=== PATIENT | male | born 1955 | race Two or more races ===

== ENCOUNTER 2022-01-15 16:41 | Inpatient (IN) | payer OTHER, MEDICAID ==
[~2022-01-15] VITALS: Ht 177.8 cm; Wt 80.6 kg
[2022-01-15 20:10] VITALS: BP 148/92
[2022-01-15] MEDS ORDERED: METF-370 PO (20:58)
[2022-01-15] MEDS ORDERED: GLIP10TA9 PO (20:58)
[2022-01-15] MEDS ORDERED: CARV25TA55 PO (20:59)
[2022-01-15] MEDS ORDERED: ATOR20TA50 PO (20:59)
[2022-01-15] MEDS ORDERED: ASPI1TAB91 PO (20:59)
[2022-01-15 22:00] VITALS: BP 149/84
[2022-01-15] MEDS ORDERED: MORPHINE SULFATE 4 MG/ML SYR/VIAL IV PRN (22:15)
[2022-01-15] MEDS ORDERED: ACETAMINOPHEN 325 MG TAB PO PRN (22:15)
[2022-01-15] MEDS ORDERED: MORPHINE SULFATE INJ 2 MG/ml SYRG IV PRN (22:15)
[2022-01-15] MEDS ORDERED: NITROGLYCERIN 0.4 MG SL TAB SL PRN ×2 (22:15)
[2022-01-15] MEDS ORDERED: ONDANSETRON HCL 4 MG/2 ML VIAL IV PRN (22:15)
[2022-01-15 23:17] LABS: INR 1.09 (0.9-1.15)
[2022-01-15 23:22] LABS: Magnesium 1.7 mg/dL (1.6-2.6)
[2022-01-16] VITALS (7 sets, daily range): BP systolic 129–154; BP diastolic 72–87
[2022-01-16 06:03] LABS: Basophils # (auto) 0.1 10 ^3/uL (0-0.2); Basophils % (auto) 0.8 % (0.0-2.0); Eosinophils # (auto) 0.3 10 ^3/uL (0-0.8); Hematocrit 43.9 % (41.0-53.0); Lymphocytes # (auto) 1.8 10 ^3/uL (0.4-5.4); Lymphocytes % (auto) 18.7 % (10.0-50.0); Mean Corpuscular Hemoglobin 30.4 pg (28.0-32.0); Mean Corpuscular Hgb Conc. 34.2 g/dL (32.0-36.0); Monocytes # (auto) 0.8 10 ^3/uL (0-1.3); Monocytes % (auto) 7.8 % (0.0-12.0); Neutrophils # (auto) 6.9 10 ^3/uL (1.6-8.6); Neutrophils % (auto) 69.7 % (37.0-80.0); Nucleated Red Blood Cells % 0.1 %; Red Blood Cells 4.93 10^6/uL (4.5-5.90); Red Cell Distribution Width 14.5 % (11.8-14.3); White Blood Cell 9.9 10^3/uL (4.4-10.8)
[2022-01-16 06:13] LABS: Albumin 2.8 g/dL (3.4-5.0); Calcium 8.5 mg/dL (8.5-10.1); Potassium 4.2 mmol/L (3.5-5.1)
[2022-01-16 06:18] LABS: BUN/Creatinine Ratio 15.1; Bilirubin, Total 0.6 mg/dL (0.2-1.0); Total Protein 6.5 g/dL (6.4-8.2)
[2022-01-16] MEDS: ASPirin-EC 81 mg tab PO SCH (09:57)
[2022-01-16] MEDS: FUROSEMIDE 40 MG/4 ML VIAL IV SCH (09:57)
[2022-01-16] MEDS: ATORVASTATIN 20 MG TAB PO SCH (09:57)
[2022-01-16] MEDS: CARVEDILOL 12.5 MG TAB PO SCH ×2 (09:58→22:21)
[2022-01-16] MEDS ORDERED: metFORMIN HYDROCHLORIDE 500 MG TAB PO SCH (10:00)
[2022-01-16] MEDS ORDERED: WARFARIN SODIUM 5 MG TAB PO SCH (17:00)
[2022-01-16] MEDS ORDERED: DEXTROSE (50%) 50ML SYRG IV PRN (17:15)
[2022-01-16] MEDS: InsuLIN REG 1unit/0.01ml Soln (100units/ml) SC SCH (22:23)
[2022-01-16] MEDS: ACCU-CHEK COMFORT CURVE STRIP VI SCH (22:29)
[2022-01-17 05:00] VITALS: BP 142/85
[2022-01-17 05:56] LABS: Basophils # (auto) 0.1 10 ^3/uL (0-0.2); Basophils % (auto) 0.8 % (0.0-2.0); Eosinophils # (auto) 0.3 10 ^3/uL (0-0.8); Eosinophils % (auto) 3.2 % (0.0-7.0); Hematocrit 42.8 % (41.0-53.0); Hemoglobin 14.5 g/dL (13.5-17.5); Lymphocytes # (auto) 2.3 10 ^3/uL (0.4-5.4); Lymphocytes % (auto) 23.6 % (10.0-50.0); Mean Corpuscular Hemoglobin 30.3 pg (28.0-32.0); Mean Corpuscular Hgb Conc. 33.9 g/dL (32.0-36.0); Mean Corpuscular Volume 89.4 fL (80.0-100.0); Monocytes # (auto) 0.7 10 ^3/uL (0-1.3); Monocytes % (auto) 7.4 % (0.0-12.0); Neutrophils # (auto) 6.4 10 ^3/uL (1.6-8.6); Nucleated Red Blood Cells % 0.1 %; Red Blood Cells 4.79 10^6/uL (4.5-5.90); Red Cell Distribution Width 14.3 % (11.8-14.3); White Blood Cell 9.9 10^3/uL (4.4-10.8)
[2022-01-17] MEDS: InsuLIN REG 1unit/0.01ml Soln (100units/ml) SC SCH ×4 (06:12→21:21)
[2022-01-17] MEDS: ACCU-CHEK COMFORT CURVE STRIP VI SCH ×4 (06:12→21:20)
[2022-01-17 06:16] LABS: Albumin 2.8 g/dL (3.4-5.0); BUN/Creatinine Ratio 20.9; Calcium 8.2 mg/dL (8.5-10.1); Potassium 4.2 mmol/L (3.5-5.1)
[2022-01-17 06:18] LABS: Bilirubin, Total 0.6 mg/dL (0.2-1.0); Total Protein 6.6 g/dL (6.4-8.2)
[2022-01-17 06:33] LABS: INR 1.12 (0.9-1.15); Partial Thromboplastin Time 28.2 sec (24.6-33.4)
[2022-01-17 08:15] VITALS: BP 137/89
[2022-01-17 09:05] VITALS: BP 137/89
[2022-01-17] MEDS: ASPirin-EC 81 mg tab PO SCH (10:36)
[2022-01-17] MEDS: FUROSEMIDE 40 MG/4 ML VIAL IV SCH (10:36)
[2022-01-17] MEDS: ATORVASTATIN 20 MG TAB PO SCH (10:36)
[2022-01-17] MEDS: CARVEDILOL 12.5 MG TAB PO SCH ×2 (10:37→21:19)
[2022-01-17 13:15] VITALS: BP 144/88
[2022-01-17 17:00] VITALS: BP 122/75
[2022-01-17] MEDS ORDERED: WARFARIN SODIUM 5 MG TAB PO ONE (17:00)
[2022-01-17 22:00] VITALS: BP_SYST 138; BP_SYST 141; BP_DIAS 87; BP_DIAS 88
[2022-01-18] VITALS (10 sets, daily range): BP systolic 116–154; BP diastolic 66–85
[2022-01-18 05:53] LABS: INR 1.29 (0.9-1.15); Partial Thromboplastin Time 29.4 sec (24.6-33.4)
[2022-01-18] MEDS: InsuLIN REG 1unit/0.01ml Soln (100units/ml) SC SCH ×4 (06:05→22:08)
[2022-01-18] MEDS: ACCU-CHEK COMFORT CURVE STRIP VI SCH ×4 (06:05→22:06)
[2022-01-18] MEDS: FUROSEMIDE 40 MG/4 ML VIAL IV SCH (10:00)
[2022-01-18] MEDS: ASPirin-EC 81 mg tab PO SCH (11:03)
[2022-01-18] MEDS: CARVEDILOL 12.5 MG TAB PO SCH ×2 (11:03→22:06)
[2022-01-18] MEDS: ATORVASTATIN 20 MG TAB PO SCH (11:03)
[2022-01-18] MEDS ORDERED: ANGIOMAX 250 MG VIAL IV ONE (13:56)
[2022-01-18] MEDS ORDERED: MIDAZOLAM HCL 2MG/2ML 2ml VIAL (1mg/ml) ONE (13:57)
[2022-01-18] MEDS ORDERED: SODIUM CHL 0.9% 50 ML ONE (13:57)
[2022-01-18] MEDS ORDERED: fentaNYL CITRATE 100 MCG/2 ML VL ONE (13:57)
[2022-01-18] MEDS ORDERED: ATROPINE SULF 1 MG/10ml SYR ONE (14:36)
[2022-01-18] MEDS ORDERED: TICAGRELOR 90 MG TAB ONE (14:49)
[2022-01-18] MEDS ORDERED: RIVAROXABAN 10 MG TAB PO SCH (17:00)
[2022-01-18] MEDS ORDERED: WARFARIN SODIUM 5 MG TAB PO ONE (17:00)
[2022-01-18] MEDS: TICAGRELOR 90 MG TAB PO SCH (22:00)
[2022-01-19 05:00] VITALS: BP 139/84
[2022-01-19] MEDS: InsuLIN REG 1unit/0.01ml Soln (100units/ml) SC SCH ×2 (06:02→11:30)
[2022-01-19] MEDS: ACCU-CHEK COMFORT CURVE STRIP VI SCH ×2 (06:02→11:30)
[2022-01-19 06:45] LABS: Basophils # (auto) 0 10 ^3/uL (0-0.2); Basophils % (auto) 0.5 % (0.0-2.0); Eosinophils # (auto) 0.1 10 ^3/uL (0-0.8); Eosinophils % (auto) 1.4 % (0.0-7.0); Hematocrit 40.1 % (41.0-53.0); Hemoglobin 13.6 g/dL (13.5-17.5); Lymphocytes # (auto) 1.5 10 ^3/uL (0.4-5.4); Lymphocytes % (auto) 14.7 % (10.0-50.0); Mean Corpuscular Hemoglobin 30.3 pg (28.0-32.0); Mean Corpuscular Hgb Conc. 33.8 g/dL (32.0-36.0); Mean Corpuscular Volume 89.7 fL (80.0-100.0); Monocytes # (auto) 0.8 10 ^3/uL (0-1.3); Monocytes % (auto) 7.7 % (0.0-12.0); Neutrophils # (auto) 7.6 10 ^3/uL (1.6-8.6); Neutrophils % (auto) 75.7 % (37.0-80.0); Nucleated Red Blood Cells % 0.1 %; Red Blood Cells 4.48 10^6/uL (4.5-5.90); Red Cell Distribution Width 14.1 % (11.8-14.3)
[2022-01-19 07:17] LABS: INR 2.23 (0.9-1.15)
[2022-01-19 09:00] VITALS: BP 147/82
[2022-01-19] MEDS: TICAGRELOR 90 MG TAB PO SCH (10:58)
[2022-01-19] MEDS: FUROSEMIDE 40 MG/4 ML VIAL IV SCH (10:58)
[2022-01-19] MEDS: ATORVASTATIN 20 MG TAB PO SCH (10:59)
[2022-01-19] MEDS: CARVEDILOL 12.5 MG TAB PO SCH (10:59)
[2022-01-19] MEDS ORDERED: TICA90TA PO (12:06)
[2022-01-19] MEDS ORDERED: METF-370 PO (12:06)
[2022-01-19] MEDS ORDERED: ATOR20TA50 PO (12:06)
[2022-01-19] MEDS ORDERED: CARV25TA55 PO (12:06)
[2022-01-19] MEDS ORDERED: RIVA10TA2 PO (12:06)
[2022-01-19 13:00] VITALS: BP 123/70
[2022-01-19] MEDS ORDERED: TICAGRELOR 60 MG TAB PO SCH (13:15)
[2022-01-19] MEDS ORDERED: RIVAROXABAN 10 MG TAB PO SCH (13:15)
[2022-01-19 14:05] VITALS: BP 123/70
== END 2022-01-19 15:00 | disposition home or self-care (01) | DRG 246 ==
LOC: TELE-WESTW 19:20
PROVIDERS: ADMIT Nurse Practitioner Family; ATTEND Internal Medicine
PROC: 027034Z Dilation of Coronary Artery, One Artery with Drug-eluting Intraluminal Device, Percutaneous Approach (ICD-10-PCS; principal; 2022-01-18)
PROC: B2111ZZ Fluoroscopy of Multiple Coronary Arteries using Low Osmolar Contrast (ICD-10-PCS; 2022-01-18)
PROC: B2151ZZ Fluoroscopy of Left Heart using Low Osmolar Contrast (ICD-10-PCS; 2022-01-18)
DX: I25.5 Ischemic cardiomyopathy (principal); I50.23 Acute on chronic systolic (congestive) heart failure; J96.01 Acute respiratory failure with hypoxia; D68.59 Other primary thrombophilia; I51.3 Intracardiac thrombosis, not elsewhere classified; E11.9 Type 2 diabetes mellitus without complications; E78.5 Hyperlipidemia, unspecified; I11.0 Hypertensive heart disease with heart failure; Z20.822 Contact with and (suspected) exposure to COVID-19; I25.10 Atherosclerotic heart disease of native coronary artery without angina pectoris; Z79.899 Other long term (current) drug therapy; Z86.711 Personal history of pulmonary embolism; Z79.01 Long term (current) use of anticoagulants
CPT/HCPCS: 36415; 71045; 80053; 80061; 82962; 83036; 83735; 83880; 84100; 84484; 85025; 85610; 85730; 86850; 86900; 86901; 87081; 87426; 93306; 99152; C1874; G0378; J1815; J2250

== ENCOUNTER 2022-02-05 15:32 | Emergency (ER) | payer OTHER, MEDICAID ==
[~2022-02-05] VITALS: Ht 175.3 cm; Wt 79.0 kg
[~2022-02-05 15:32] MED LIST: ATOR20TA50 PO; CARV25TA55 PO; METF-370 PO; RIVA10TA2 PO; TICA90TA PO
[2022-02-05 17:30] VITALS: BP 143/85
[2022-02-05] MEDS ORDERED: FLUORESCEIN SOD OPTH TEST STRIP OP ONE (17:45)
[2022-02-05] MEDS ORDERED: CIP03OS LEFTEYE (17:45)
== END 2022-02-05 18:08 | disposition home or self-care (01) ==
LOC: ER 15:34
DX: S05.02XA Injury of conjunctiva and corneal abrasion without foreign body, left eye, initial encounter (principal); X58.XXXA Exposure to other specified factors, initial encounter; Y93.89 Activity, other specified; Y92.89 Other specified places as the place of occurrence of the external cause; Y99.8 Other external cause status